=== PATIENT | male | born 1970 | race Caucasian/White ===

== ENCOUNTER 2019-06-14 09:36 | Outpatient (CLI) | payer OTHER ==
--- NOTE | 2019-06-14 11:29 | RAD ---
TWO VIEW CHEST: HISTORY: Wheezing. COMPARISON: No comparison. FINDINGS: Mild elevated right hemidiaphragm with mild right basilar atelectasis. Lung reid otherwise appear clear. Heart size is upper normal. Vasculature within normal range. IMPRESSION: Mild right basilar atelectasis. POS: H
== END 2019-06-14 09:37 | disposition home or self-care (01) ==
LOC: RAD-FRANK 09:36
PROVIDERS: ATTEND Nurse Practitioner Family
DX: R06.2 Wheezing (principal); J98.11 Atelectasis
CPT/HCPCS: 71046